=== PATIENT | male | born 1960 | race Caucasian/White ===

== ENCOUNTER 2018-05-15 20:14 | Emergency (ER) | payer OTHER ==
[2018-05-15 20:31] VITALS: RESP 18; TEMP 98.5; BMI 45.1
[2018-05-15 21:10] LABS: BASO # 0.04 K/mm3 (0.0-2.0); BASO % 0.6 % (0.0-3.0); EOS # 0.4 (0.0-0.7); EOS % 6.4 % (1.5-5.0); HEMOGLOBIN 13.7 g/dL (14.0-18.0); LYMPH # 2.1 (1.2-3.4); LYMPH % 29.6 % (22.0-35.0); MEAN CELL VOLUME 90.2 fl (80.0-105.0); MEAN CORPUSCULAR HEMOGLOBIN 29.7 pg (25.0-35.0); MEAN CORPUSCULAR HGB CONC 32.9 g/dl (31.0-37.0); MEAN PLATELET VOLUME 11.4 fl (7.0-11.0); MONO # 0.4 (0.1-0.6); MONO % 5.8 % (1.0-6.0); RBC 4.61 10^6/uL (3.5-6.1); RED CELL DISTRIBUTION WIDTH 14.1 % (11.5-14.5); WHITE BLOOD COUNT 6.9 10^3/uL (4.5-11.0)
[2018-05-15 21:19] LABS: INR 1.13; PARTIAL THROMBOPLASTIN TIME 32.5 Seconds (26.9-38.3); PROTHROMBIN TIME 12.5 SECONDS (9.4-12.5)
[2018-05-15 21:23] LABS: ALB/GLOB RATIO 1.2 (1.1-1.8); ALBUMIN 3.9 g/dL (3.0-4.8); ALT/SGPT 31 U/L (7-56); AMYLASE 75 U/L (35-125); AST/SGOT 33 U/L (17-59); BLOOD UREA NITROGEN 22 mg/dL (7-21); CALCIUM 9.1 mg/dL (8.4-10.5); GFR NON-AFRICAN AMERICAN 57; LIPASE 115 U/L (23-300)
--- NOTE | 2018-05-15 21:25 | ED PDOC ---
Arrival/HPI - General Chief Complaint: GI Problem Time Seen by Provider: 05/15/18 20:27 Historian: Patient - History of Present Illness Narrative History of Present Illness (Text): 05/15/18 21:20 57yo morbidly obese male with pmhx of hypertension, CHF and gall stones who present with complaint of RUQ abdominal pain with associated nausea and vomiting one hour [employer]. Patient states he have history of gall stone and was told that he might get pain whenever he eats fatty meal. states he have had it intermittently for 4years now, depending on the food he eat. states he have seen 3surgeons and was advised to leave his gallbladder if is not bothering him. states he started having the pain tonight after eating fatty meal and his pain improved s/p. Notes current colicky pain, 10/20. Denies diarrhea, constipation, urinary symptoms, chest pain, SOB, ripping/tearing upper back pain, any other complaint. Past Medical History - Provider Review Nursing Documentation Reviewed: Yes - Infectious Disease Hx of Infectious Diseases: None - Cardiac Hx Hypertension: Yes - Pulmonary Hx Respiratory Disorders: No - Neurological Hx Neurological Disorder: No - HEENT Hx HEENT Disorder: No - Renal Hx Renal Disorder: No - Endocrine/Metabolic Hx Diabetes Mellitus Type 2: No - Hematological/Oncological Hx Cancer: Yes (prostate ca) - Integumentary Hx Dermatological Disorder: No - Musculoskeletal/Rheumatological Hx Musculoskeletal Disorders: No - Gastrointestinal Hx Gastrointestinal Disorders: No - Genitourinary/Gynecological Hx Genitourinary Disorders: No - Psychiatric Hx Psychophysiologic Disorder: No Hx Substance Use: No - Surgical History Other/Comment: Gastric sleeve. Prostate sx - Anesthesia Hx Anesthesia: Yes Hx Anesthesia Reactions: No Hx Malignant Hyperthermia: No Family/Social History - Physician Review Nursing Documentation Reviewed: Yes Family/Social History: Unknown Family HX Smoking Status: Current Some Days Smoker Hx Alcohol Use: Yes Hx Substance Use: No Allergies/Home Meds Allergies/Adverse Reactions: Allergies No Known Allergies Allergy (Verified 05/16/17 22:02) Home Medications: Home Meds Medication Instructions Recorded Confirmed Albuterol HFA [Ventolin HFA 90 2 puff INH TID PRN 05/16/17 05/15/18 mcg/actuation (8 g)] Valsartan/Hydrochlorothiazide 1 tab PO DAILY 05/16/17 05/15/18 [Diovan Hct 160-25 mg Tablet] Carvedilol [Coreg] 1 tab PO BID 05/15/18 05/15/18 Review of Systems - Physician Review All systems were reviewed & negative as marked: Yes - Review of Systems Constitutional: Normal Eyes: Normal ENT: Normal Respiratory: Normal Cardiovascular: Normal Gastrointestinal: Abdominal Pain, Nausea, Vomiting. absent: Constipation, Diarrhea, Hematochezia, Hematemesis Genitourinary Male: Normal Musculoskeletal: Normal Skin: Normal Neurological: Normal Endocrine: Normal Hemo/Lymphatic: Normal Psychiatric: Normal Physical Exam Vital Signs Reviewed: Yes Vital Signs Temp Pulse Resp BP Pulse Ox 05/15/18 20:24 98.5 F 67 18 135/64 96 Temperature: Afebrile Blood Pressure: Normal Pulse: Regular Respiratory Rate: Normal Appearance: Positive for: Well-Appearing, Non-Toxic, Comfortable, Other ([place] obese) Pain Distress: None Mental Status: Positive for: Alert and Oriented X 3 - Systems Exam Head: Present: Atraumatic, Normocephalic Pupils: Present: PERRL Extroacular Muscles: Present: EOMI Conjunctiva: Present: Normal Mouth: Present: Moist Mucous Membranes Neck: Present: Normal Range of Motion Respiratory/Chest: Present: Clear to Auscultation, Good Air Exchange. No: Respiratory Distress, Accessory Muscle Use Cardiovascular: Present: Regular Rate and Rhythm, Normal S1, S2. No: Murmurs Abdomen: Present: Tenderness (RUQ pain), Normal Bowel Sounds, Other (soft). No: Distention, Peritoneal Signs, Rebound, Guarding, McBurney's Point Tender, Rovsing's Sign Present Back: Present: Normal Inspection Upper Extremity: Present: Normal Inspection. No: Cyanosis, Edema Lower Extremity: Present: Normal Inspection. No: Edema Neurological: Present: GCS=15, CN II-XII Intact, Speech Normal Skin: Present: Warm, Dry, Normal Color. No: Rashes Psychiatric: Present: Alert, Oriented x 3, Normal Insight, Normal Concentration Medical Decision Making ED Course and Treatment: 05/15/18 22:44 57yo male who present to ED for stated history. He was comfortable and hemodynamically stable in ED. Labs Pepcid/Zofran Abdominal/Pelvic CT Pt remained comfortable in ED. Talking and laughing Lab was unremarkable CT Abdomen and Pelvis: IMPRESSION: 1. The liver is enlarged measuring 21 cm craniocaudal. 2. There is a 1.7 cm mixed density lesion exophytic from the midpole of the right kidney which appears to contain some fat density. This is most suggestive of angiomyelolipoma. Please correlate clinically and if indicated followup can be obtained. 3. There is mild constipation in the proximal colon. 4. There is a small periumbilical fat containing hernia. 5. No convincing evidence for acute pathology in the abdomen or pelvis. 6. Additional and incidental findings as described. Electronically signed on May 15, 2018 10:38:52 PM EST by: Frank Dash M.D., WENDY Certified By [facility] [employer] [facility] Fellowship Trained MRI and CT Specialist 05/15/18 23:09 05/15/18 23:10 All result was DW the pt. He was referred to a GI for outpt work up. - Lab Interpretations Lab Results: PT 12.5 SECONDS (9.4-12.5) 05/15/18 21:06 INR 1.13 05/15/18 21:06 APTT 32.5 Seconds (26.9-38.3) 05/15/18 21:06 - RAD Interpretation Radiology Orders: 05/15/18 20:48 ABD & PELVIS W/O PO OR IV CONT [CT] Stat - Medication Orders Current Medication Orders: Discontinued Medications Famotidine (Pepcid) 20 mg IVP STAT STA Stop: 05/15/18 20:37 Last Admin: 05/15/18 21:02 Dose: 20 mg IVP Administration Document 05/15/18 21:02 KV (Rec: 05/15/18 21:02 KV [facility] [id number]) Charges for Administration # of IVP Administrations 1 Ondansetron HCl (Zofran Inj) 4 mg IVP STAT STA Stop: 05/15/18 20:37 Last Admin: 05/15/18 21:02 Dose: 4 mg IVP Administration Document 05/15/18 21:02 KV (Rec: 05/15/18 21:02 KV [facility] [id number]) Charges for Administration # of IVP Administrations 1 Disposition/Present on Arrival - Present on Arrival Any Indicators Present on Arrival: No History of DVT/PE: No History of Uncontrolled Diabetes: No Urinary Catheter: No History of Decub. Ulcer: No History Surgical Site Infection Following: None - Disposition Have Diagnosis and Disposition been Completed?: Yes Diagnosis: Abdominal pain Disposition: HOME/ ROUTINE Disposition Time: 22:55 Patient Plan: Discharge Patient Problems: Current Active Problems Problem Status Onset Abdominal pain Acute Condition: STABLE Discharge Instructions (ExitCare): Acute Abdomen (Belly Pain), Adult (DC) Additional Instructions: Follow up with your doctor/GI Return to ED for any new or worsening symptoms Referrals: Bernabe Joiner MD [Medical Doctor] - Follow up with primary Forms: [employer] (Mongolian)
[2018-05-15 21:34] LABS: TROPONIN I 0.03 ng/mL
[2018-05-15 22:54] VITALS: BP 131/61; PULSE 73; O2SAT 95
[2018-05-15 23:29] LABS: URINE BILIRUBIN NEGATIVE (NEGATIVE); URINE BLOOD NEGATIVE (NEGATIVE); URINE GLUCOSE (UA) NEGATIVE (NEGATIVE); URINE LEUKOCYTE ESTERASE NEGATIVE Leu/uL (NEGATIVE); URINE PROTEIN NEGATIVE mg/dL (<30 mg/dL); URINE UROBILINOGEN 0.2 E.U./dL (<1 E.U./dL)
[2018-05-15 23:40] LABS: URINE APPEARANCE CLEAR (CLEAR); URINE COLOR YELLOW (YELLOW)
--- NOTE | 2018-05-16 11:15 | CARD ---
APPROVED REPORT Date of service: 05/15/2018 EKG Measurement Heart [id number] <Conclusion> Sinus rhythm with frequent premature ventricular complexes Left axis deviation Moderate voltage criteria for LVH, may be normal variant T wave abnormality, consider lateral ischemia Abnormal ECG
--- NOTE | 2018-05-16 14:21 | CT ---
Date of service: 05/15/2018 PROCEDURE: CT Abdomen and Pelvis . HISTORY: RUQ pain COMPARISON: None. TECHNIQUE: Contiguous axial images of the abdomen and pelvis. No oral or IV contrast given. 2D sagittal and coronal reformats generated. Radiation dose: Total exam DLP = 1649.72 mGy-cm. This CT exam was performed using one or more of the following dose reduction techniques: Automated exposure control, adjustment of the mA and/or kV according to patient size, and/or use of iterative reconstruction technique. FINDINGS: LOWER THORAX: There is a small elliptical shaped nodular density measuring 4.2 mm in the left lateral lung base that is incompletely seen and could in fact represent a incompletely visualized vessel versus small nodule. Mild scarring changes seen in the lingular and middle lobe regions. No infiltrate or effusion. No evidence of basilar pneumothorax. Heart size within range of normal. The tiny hiatal hernia. LIVER: Liver is enlarged measuring over 21 cm in CC dimension. No obvious hepatic mass collection or calcification. GALLBLADDER AND BILE DUCTS: Gallbladder appears incompletely distended likely due to nonfasting state. Gallbladder wall is slightly prominent which may also be secondary to incomplete distension. Correlation with ultrasound for further evaluation. PANCREAS: Pancreas appears slightly atrophic and fatty replaced. There are no pancreatic masses collections or calcifications. SPLEEN: Unremarkable. No splenomegaly. ADRENALS: Slightly nodular appearing left adrenal gland. KIDNEYS AND URETERS: There is a small approximately 2.0 x 1.5 mm slightly heterogeneous exophytic lesion arising from the lateral cortex mid pole right kidney. This exhibits Hounsfield units ranging between low single digits and upper - 30s. This lesion is of uncertain etiology and could conceivably represent a angiomyolipoma however other lesions not excluded. Recommend renal protocol CT scan for further evaluation to confirm and exclude other pathology.. No evidence of nephrolithiasis or hydronephrosis. BLADDER: Urinary bladder is incompletely distended which in part accounts for thick-walled appearance. Muscular hypertrophy may contribute. Correlation with urinalysis recommended to exclude cystitis or other intrinsic bladder wall lesion. REPRODUCTIVE: There appears to be a curvilinear calcification within the prostate gland. APPENDIX: Normal appendix BOWEL: Evaluation of the bowel is somewhat limited due to the lack of oral contrast material. Stomach is distended with food debris liquid and air. Visualized loops of small bowel exhibit normal contour and caliber. No evidence of acute mechanical small bowel obstruction. There is a moderate amount of stool seen within the proximal colon suggesting mild fecal retention/constipation. No definitive mural wall thickening. Scattered colonic diverticula along the left colon felt be present with no radiographic evidence to suggest acute diverticulitis.. PERITONEUM: Unremarkable. No fluid collection. No free air. There is a small fat containing umbilical hernia. Small fat containing bilateral inguinal hernias left larger than right. The LYMPH NODES: Unremarkable. No enlarged lymph nodes. VASCULATURE: Unremarkable. No aortic aneurysm. No aortic atherosclerotic calcification or mural plaque present. BONES: No fracture or destructive lesion. OTHER FINDINGS: None. IMPRESSION: Hepatomegaly. 2 cm x 1.5 cm exophytic lesion right kidney with units ranging from mid +single digits into the upper -30s density suggesting some fatty component. Rule out angiomyolipoma. Follow-up studies could confirm. Gallbladder appears slightly contracted with thick-walled appearance. This likely due to nonfasting state however correlation gallbladder ultrasound recommended. The few scattered colonic diverticula without radiographic evidence of acute diverticulitis
== END 2018-05-15 23:10 | disposition home or self-care (01) ==
LOC: ED 20:14
DX: R10.11 Right upper quadrant pain (principal); E66.01 Morbid (severe) obesity due to excess calories; I50.9 Heart failure, unspecified; I10 Essential (primary) hypertension
CPT/HCPCS: 74176; 80053; 81003; 82150; 82550; 83615; 83690; 84484; 85025; 85610; 85730; 87040; 93005; 96374; 96375; 99283; J2405